=== PATIENT | male | born 1970 | race Asian ===

== ENCOUNTER 2022-10-30 07:45 | Emergency (ER) | payer OTHER ==
[~2022-10-30] VITALS: Ht 175.3 cm; Wt 113.4 kg
[2022-10-30 07:50] VITALS: TEMP 99
[2022-10-30 08:18] LABS: PLATELET COUNT 288 K/uL (142-355)
[2022-10-30 08:28] LABS: POTASSIUM 4.1 mmol/L (3.6-5.2)
[2022-10-30 09:15] VITALS: BP 160/100
== END 2022-10-30 09:16 | disposition home or self-care (01) ==
LOC: ED 07:45
PROVIDERS: Emergency Medicine
DX: I10 Essential (primary) hypertension (principal); M19.90 Unspecified osteoarthritis, unspecified site; E66.9 Obesity, unspecified; R60.9 Edema, unspecified; I87.8 Other specified disorders of veins; F17.210 Nicotine dependence, cigarettes, uncomplicated; F10.90 Alcohol use, unspecified, uncomplicated
CPT/HCPCS: 80053; 83880; 84484; 85027; 99284